=== PATIENT | female | born 1960 | race Caucasian/White ===

== ENCOUNTER 2018-11-14 08:53 | Emergency (ER) | payer BC ==
[~2018-11-14] VITALS: Ht 157.5 cm; Wt 70.0 kg
[~2018-11-14 08:53] MED LIST: AMOXICILLIN500 MG PO; BACTRIM DS1 TAB OR; DAILY MULT1 PO; HYDROXYZ HCL25 MG PO; NO HOME MEDS
[2018-11-14] MEDS ORDERED: FAMOTIDINE20 M1 PO (10:13)
[2018-11-14] MEDS ORDERED: LEVOCETIRIZINE D5 MG PO (10:13)
[2018-11-14] MEDS ORDERED: TORADOL PO (10:16)
[2018-11-14 10:30] VITALS: BP 131/69
== END 2018-11-14 10:30 | disposition home or self-care (01) | DRG 563 ==
LOC: ED 08:53
DX: S93.401A Sprain of unspecified ligament of right ankle, initial encounter (principal); X50.0XXA Overexertion from strenuous movement or load, initial encounter; Y92.481 Parking lot as the place of occurrence of the external cause